=== PATIENT | male | born 1985 | race Two or more races ===

== ENCOUNTER 2021-02-16 19:44 | Emergency (ER) | payer MEDICAID ==
[~2021-02-16] VITALS: Ht 177.8 cm; Wt 77.1 kg
[2021-02-16 21:11] VITALS: BP 142/78
[2021-02-16] MEDS ORDERED: CEPH500C2 PO (22:41)
== END 2021-02-16 22:51 | disposition home or self-care (01) ==
LOC: ER 19:52
DX: L02.411 Cutaneous abscess of right axilla (principal)